=== PATIENT | male | born 1965 | race Caucasian/White ===

== ENCOUNTER → 2016-12-11 | Outpatient (CLI) | payer OTHER ==
[~2016-12-11] MED LIST: ALBUTEROL2.5 MG/0.5 INH; ASPIRIN81 M1 PO; Albuterol Sulfat3 M1 INH; CELEXA10 MG PO; CLARITIN-D 10 M1 T24 PO; GLIMEPIRIDE2 MG PO; HUMULIN 70/30 703 M1 SC; IMDUR30 MG PO; ISOSORBIDE30 MG PO; LISINOPRIL2.5 MG PO; LOPRESSOR; LOPRESSOR25 MG PO; LOPRESSOR50 MG PO; MEDROL DOSEPAK4 MG PO; MOTRIN800 MG PO; NEURONTIN300 MG PO; PLAVIX75 MG PO; PREDNISONE20 MG PO; RESTORIL22.5 MG PO; SIMVASTATIN40 MG PO; SIMVASTATIN80 MG PO; TESSALON PERLE100 M1 PO; TRAMADOL HCL50 MG PO; VICODIN 5/500 505 MG PO; VISTARIL25 MG PO; VISTARIL50 MG PO; ZANTAC 150150 MG PO; ZESTRIL2.5 MG PO; ZITHROMAX250 MG PO; ZOCOR10 MG PO; [UNRECOGNIZED DRUG - REMARK]; [UNRECOGNIZED DRUG - REMARK]
[2016-12-11 09:06] LABS: BASO # 0.1 10*3/uL (0.0-0.1); BASO % 0.9 % (0.0-1.0); EOS # 0.7 10*3/uL (0.0-0.4); EOS % 6.9 % (1.0-4.0); HEMATOCRIT 44.3 % (42.0-52.0); HEMOGLOBIN 15.1 g/dl (14.0-18.0); IG # 0.1 10*3/uL (0.0-0.1); LYMPH # 3.1 10*3/uL (1.3-4.4); LYMPH % 29.3 % (27.0-41.0); MEAN CELL VOLUME 85.9 fl (80.0-94.0); MEAN CORPUSCULAR HGB 29.3 pg (27.0-31.0); MEAN CORPUSCULAR HGB CONC 34.1 g/dl (33.0-37.0); MEAN PLATELET VOLUME 10.9 fl (9.6-12.3); NEUT # 5.5 10*3/uL (2.3-7.9); NEUT % 52.3 % (47.0-73.0); PLATELET COUNT AUTOMATED 194 10*3/uL (130-400); RED BLOOD COUNT 5.16 10*6/uL (4.50-5.90); WHITE BLOOD COUNT 10.4 10*3/uL (4.8-10.8)
[2016-12-11 09:09] LABS: BILIRUBIN NEGATIVE (NEGATIVE); BLOOD TRACE-LYSED (NEGATIVE); CLARITY SL CLOUDY (CLEAR); COLOR YELLOW (YELLOW); GLUCOSE 3+ (NEGATIVE); KETONE NEGATIVE (NEGATIVE); LEUKO ESTERASE NEGATIVE (NEGATIVE); NITRITE NEGATIVE (NEGATIVE); PH 5.5 (5.0-9.0); PROTEIN TRACE (NEGATIVE); UROBILINOGEN 0.2 E.U./dl (0.2-1.0)
[2016-12-11 09:24] LABS: HEMOGLOBIN A1c 10.2 % (4.8-5.6)
[2016-12-11 09:38] LABS: ALBUMIN 3.7 gm/dl (3.1-4.5); ALKALINE PHOSPHATASE 91 U/L (45-117); BUN 12 mg/dl (7-24); CARBON DIOXIDE 28 mmol/L (21-32); CHLORIDE 99 mmol/L (98-107); CHOLESTEROL 130 mg/dL (<200); EST GLOM FILT AFRICAN AMERICAN > 60 ml/min; GLUCOSE 319 mg/dL (65-99); HDL CHOLESTEROL 44 mg/dl (40-60); LDL CHOLESTEROL 67 mg/dL (9-159); POTASSIUM 4.5 mmol/L (3.5-5.1); SGOT/AST 20 IU/L (3-35); SGPT/ALT 33 U/L (12-78); SODIUM 139 mmol/L (136-145); TOTAL PROTEIN 7.2 gm/dL (6.4-8.2); TRIGLYCERIDES 97 mg/dl (<150); VLDL CHOLESTEROL 19 mg/dL (6-40)
== END ==
LOC: LAB 08:11
PROVIDERS: Nurse Practitioner Family
DX: E11.9 Type 2 diabetes mellitus without complications (principal); I10 Essential (primary) hypertension; F32.9 Major depressive disorder, single episode, unspecified; E78.4 Other hyperlipidemia

== ENCOUNTER → 2017-05-05 | Outpatient (CLI) | payer OTHER ==
[2017-05-05 13:17] LABS: BILIRUBIN NEGATIVE (NEGATIVE); BLOOD NEGATIVE (NEGATIVE); CLARITY CLEAR (CLEAR); COLOR YELLOW (YELLOW); GLUCOSE TRACE (NEGATIVE); KETONE NEGATIVE (NEGATIVE); LEUKO ESTERASE NEGATIVE (NEGATIVE); NITRITE NEGATIVE (NEGATIVE); PH 5.5 (5.0-9.0); SPECIFIC GRAVITY 1.015 (1.005-1.030); UROBILINOGEN 0.2 E.U./dl (0.2-1.0)
[2017-05-05 13:35] LABS: BASO # 0.1 10*3/uL (0.0-0.1); BASO % 0.8 % (0.0-1.0); EOS # 0.6 10*3/uL (0.0-0.4); HEMATOCRIT 40.8 % (42.0-52.0); HEMOGLOBIN 13.6 g/dl (14.0-18.0); LYMPH # 2.5 10*3/uL (1.3-4.4); LYMPH % 29.2 % (27.0-41.0); MEAN CELL VOLUME 86.1 fl (80.0-94.0); MEAN CORPUSCULAR HGB 28.7 pg (27.0-31.0); MEAN CORPUSCULAR HGB CONC 33.3 g/dl (33.0-37.0); MEAN PLATELET VOLUME 11.4 fl (9.6-12.3); MONO # 0.8 10*3/uL (0.1-1.0); MONO % 8.8 % (3.0-9.0); NEUT # 4.6 10*3/uL (2.3-7.9); NEUT % 53.9 % (47.0-73.0); PLATELET COUNT AUTOMATED 179 10*3/uL (130-400); RED BLOOD COUNT 4.74 10*6/uL (4.50-5.90); RED CELL DISTRI WIDTH 12.2 % (0-14.5); WHITE BLOOD COUNT 8.6 10*3/uL (4.8-10.8)
[2017-05-05 13:38] LABS: EPITHELIAL CELLS 0-2; WBC 0-2 wbc/hpf (0-5)
[2017-05-05 13:40] LABS: ALBUMIN 3.6 gm/dl (3.1-4.5); BUN 12 mg/dl (7-24); CHLORIDE 104 mmol/L (98-107); CHOLESTEROL 133 mg/dL (<200); CREATININE 0.83 mg/dL (0.70-1.30); HDL CHOLESTEROL 57 mg/dl (40-60); LDL CHOLESTEROL 56 mg/dL (9-159); POTASSIUM 4.3 mmol/L (3.5-5.1); SGOT/AST 23 IU/L (3-35); SGPT/ALT 27 U/L (12-78); SODIUM 139 mmol/L (136-145); TOTAL PROTEIN 7.4 gm/dL (6.4-8.2); TRIGLYCERIDES 100 mg/dl (<150); VLDL CHOLESTEROL 20 mg/dL (6-40)
[2017-05-05 13:41] LABS: ALKALINE PHOSPHATASE 84 U/L (45-117)
== END | disposition home or self-care (01) ==
LOC: LAB 12:39
PROVIDERS: Nurse Practitioner Family
DX: E11.9 Type 2 diabetes mellitus without complications (principal); I10 Essential (primary) hypertension

== ENCOUNTER → 2017-08-06 | Day surgery (SDC) | payer OTHER ==
[~2017-08-06] VITALS: Ht 175.2 cm; Wt 113.4 kg
[~2017-08-06] MED LIST changes: +IMDUR SA30 MG PO
--- NOTE | ~2017-08-06 | PROC NOTE ---
[place], [place] PROCEDURE NOTE NAME: BARBARA STEVENS [facility] #: [id number] UNIT #: [id number] ROOM: DOCTOR: JOANA GLYNN MD BIRTHDATE: [birth year] DOS: 08/06/2017 PREOPERATIVE DIAGNOSIS: Lower gastrointestinal bleed. POSTOPERATIVE DIAGNOSIS: Rectosigmoid mass (20-25 cm from the anal verge). PROCEDURE: Flexible sigmoidoscopy with biopsy. ENDOSCOPIST: Joana Glynn MD DEMAND EQUIPMENT REPAIRER: HORTENCIA. ANESTHESIA: MAC. INDICATIONS: This is a 51-year-old gentleman who is here for a workup for a lower GI bleed. The procedure and its complications were explained to the patient and his family in detail preoperatively. Complications that were discussed included but were not limited to bleeding, missed lesions, colon perforation, and prolonged pain. He agreed to proceed. DESCRIPTION OF PROCEDURE: After identifying the patient, the patient was brought to the endoscopy suite and placed in the left lateral position. After time-out procedure was called, sedation was administered by the anesthesia team and a rectal exam was performed. This was within normal limits with no blood noticed on the examining finger. At this point, an adult colonoscope was introduced into the anal canal and advanced sequentially into the rectum where a friable bleeding mass was found at approximately 20-25 cm from the anal verge. The scope was then passed beyond this mass and could not be advanced further because of poor prep and a lot of liquid stool that was encountered. This could not be cleaned despite multiple attempts at irrigation. At this point, the scope was then withdrawn and 2 biopsies with the help of a biopsy forceps were taken and sent for histopathological diagnosis. After hemostasis was confirmed, the scope was withdrawn and the patient was brought back to the recovery room in a stable fashion. The patient's family was informed of the findings, and the patient will be worked up for further evaluation from the standpoint of a colon tumor. Joana Glynn MD CM:PROCNOTE:PROCEDURE NOTE [id number] JOANA GLYNN MD
[2017-08-06 09:51] VITALS: BP 134/86
[2017-08-06 11:40] VITALS: BP 146/76
[2017-08-06 11:55] VITALS: BP 142/72
[2017-08-06 12:15] VITALS: BP 143/76
== END | disposition home or self-care (01) ==
LOC: SDC 08-05 11:00
DX: C19 Malignant neoplasm of rectosigmoid junction (principal); I25.2 Old myocardial infarction; I25.10 Atherosclerotic heart disease of native coronary artery without angina pectoris; I10 Essential (primary) hypertension; E11.9 Type 2 diabetes mellitus without complications; F17.210 Nicotine dependence, cigarettes, uncomplicated; K21.9 Gastro-esophageal reflux disease without esophagitis; Z79.899 Other long term (current) drug therapy

== ENCOUNTER → 2017-08-28 | Outpatient (CLI) | payer OTHER ==
[2017-08-28 17:24] LABS: BASO # 0.1 10*3/uL (0.0-0.1); BASO % 0.9 % (0.0-1.0); EOS # 0.8 10*3/uL (0.0-0.4); EOS % 7.9 % (1.0-4.0); HEMATOCRIT 40.9 % (42.0-52.0); HEMOGLOBIN 13.5 g/dl (14.0-18.0); LYMPH # 1.9 10*3/uL (1.3-4.4); LYMPH % 19.9 % (27.0-41.0); MEAN CELL VOLUME 86.1 fl (80.0-94.0); MEAN CORPUSCULAR HGB 28.4 pg (27.0-31.0); MEAN PLATELET VOLUME 11.1 fl (9.6-12.3); MONO # 0.8 10*3/uL (0.1-1.0); MONO % 8.4 % (3.0-9.0); NEUT # 5.9 10*3/uL (2.3-7.9); NEUT % 62.6 % (47.0-73.0); PLATELET COUNT AUTOMATED 192 10*3/uL (130-400); RED BLOOD COUNT 4.75 10*6/uL (4.50-5.90); RED CELL DISTRI WIDTH 12.3 % (0-14.5); WHITE BLOOD COUNT 9.5 10*3/uL (4.8-10.8)
[2017-08-28 17:44] LABS: BUN 11 mg/dl (7-24); CHLORIDE 100 mmol/L (98-107); CREATININE 0.89 mg/dL (0.70-1.30); POTASSIUM 4.4 mmol/L (3.5-5.1); SODIUM 136 mmol/L (136-145)
[2017-08-28 17:49] LABS: CEA 1.6 ng/mL
== END | disposition home or self-care (01) ==
LOC: LAB 16:58
PROVIDERS: Colon & Rectal Surgery
DX: C18.7 Malignant neoplasm of sigmoid colon (principal)

== ENCOUNTER → 2017-09-02 | Outpatient (CLI) | payer OTHER | END | disposition home or self-care (01) | LOC: CT 07:59 | DX: C18.7 Malignant neoplasm of sigmoid colon (principal); K63.9 Disease of intestine, unspecified; R94.31 Abnormal electrocardiogram [ECG] [EKG] ==

== ENCOUNTER 2020-01-24 15:14 | Observation (INO) | payer OTHER ==
[~2020-01-24] VITALS: Ht 170.1 cm; Wt 112.5 kg
[2020-01-24 15:36] VITALS: BP 105/63
[2020-01-24 15:47] LABS: BASO # 0.1 10*3/uL (0.0-0.1); BASO % 0.7 % (0.0-1.0); EOS # 0.2 10*3/uL (0.0-0.4); EOS % 1.7 % (1.0-4.0); HEMATOCRIT 44.5 % (42.0-52.0); LYMPH # 1.3 10*3/uL (1.3-4.4); LYMPH % 11.7 % (27.0-41.0); MEAN CELL VOLUME 83.5 fl (80.0-94.0); MEAN CORPUSCULAR HGB 28.1 pg (27.0-31.0); MEAN CORPUSCULAR HGB CONC 33.7 g/dl (33.0-37.0); MEAN PLATELET VOLUME 10.9 fl (9.6-12.3); MONO % 8.8 % (3.0-9.0); NEUT # 8.4 10*3/uL (2.3-7.9); NEUT % 76.7 % (47.0-73.0); PLATELET COUNT AUTOMATED 194 10*3/uL (130-400); RED BLOOD COUNT 5.33 10*6/uL (4.50-5.90); RED CELL DISTRI WIDTH 12.1 % (0-14.5); WHITE BLOOD COUNT 10.9 10*3/uL (4.8-10.8)
[2020-01-24 16:03] LABS: ALBUMIN 4.1 gm/dl (3.1-4.5); ALKALINE PHOSPHATASE 98 U/L (45-117); BUN 20 mg/dl (7-24); CHLORIDE 102 mmol/L (98-107); CREATININE 1.95 mg/dL (0.70-1.30); POTASSIUM 3.7 mmol/L (3.5-5.1); SGOT/AST 13 IU/L (3-35); SGPT/ALT 25 U/L (12-78); SODIUM 134 mmol/L (136-145)
[2020-01-24 16:04] LABS: TROPONIN I < 0.015 ng/ml (<0.045)
[2020-01-24 16:35] LABS: ACT PARTIAL THROMBO TIME 26.7 SECONDS (20.0-32.1); INTERNATIONAL NORM RATIO 1.1 (2.0-3.5)
[2020-01-24 17:30] VITALS: BP 110/68
[2020-01-24 18:48] VITALS: BP 121/56
--- NOTE | 2020-01-24 18:48 | NUR ---
LYING IN BED RESTING EYES CLOSED. DENIES ANY NEEDS. CALL LIGHT IN REACH.
--- NOTE | 2020-01-24 19:09 | NUR ---
NURSE TO NURSE REPORT GIVEN TO THIS RN.PT AWAITING ROOM ASSIGNMENT FOR ADMISSION.FLUIDS CONTINUE TO INFUSE.
[2020-01-24 19:45] VITALS: BP 141/62
--- NOTE | 2020-01-24 19:45 | NUR ---
A 54, admitted to 4E, under the services of ARY Abbasi DO with a diagnosis of CORY CHEST PAIN R/O MO. Chief complaint is CHEST PAIN. Patient arrived via stretcher from ER. Monitor applied. Initial assessment completed. Vital signs taken and recorded. ARY ABBASI DO notified of admission to the unit. Orders received. See assessment for past medical history, medications and allergies. Patient and/or family oriented to unit. [facility] 4TH FLOOR visitation policy reviewed. Clothing/patient valuable form completed. YESY WEN
--- NOTE | 2020-01-24 20:27 | NUR ---
PATIENT UNSURE OF MEDICATIONS. STATES HIS SISTER IS HIS CAREGIVER AND HAS A LIST OF MEDICATIONS. ATTEMPTED TO CALL SISTER. NO ANSWER. WILL RETRY
[2020-01-24] MEDS ORDERED: METOPROLOL TART50 M1 PO (20:35)
[2020-01-25] VITALS: BP 144/59
--- NOTE | 2020-01-25 04:00 | NUR ---
PATIENT SLEEPING, NO SIGNS OF DISTRESS. WILL CONTINUE TO MONITOR.
[2020-01-25 08:19] LABS: BASO # 0.1 10*3/uL (0.0-0.1); BASO % 0.4 % (0.0-1.0); EOS # 0.3 10*3/uL (0.0-0.4); EOS % 2.3 % (1.0-4.0); HEMATOCRIT 42.9 % (42.0-52.0); LYMPH # 1.7 10*3/uL (1.3-4.4); LYMPH % 15.6 % (27.0-41.0); MEAN CELL VOLUME 85.1 fl (80.0-94.0); MEAN CORPUSCULAR HGB 28.2 pg (27.0-31.0); MEAN CORPUSCULAR HGB CONC 33.1 g/dl (33.0-37.0); MEAN PLATELET VOLUME 10.9 fl (9.6-12.3); MONO % 9.1 % (3.0-9.0); NEUT # 8.1 10*3/uL (2.3-7.9); NEUT % 72.2 % (47.0-73.0); PLATELET COUNT AUTOMATED 162 10*3/uL (130-400); RED BLOOD COUNT 5.04 10*6/uL (4.50-5.90); RED CELL DISTRI WIDTH 12.1 % (0-14.5); WHITE BLOOD COUNT 11.2 10*3/uL (4.8-10.8)
[2020-01-25 08:32] LABS: BUN 17 mg/dl (7-24); CHLORIDE 107 mmol/L (98-107); CREATININE 0.94 mg/dL (0.70-1.30); POTASSIUM 3.5 mmol/L (3.5-5.1); SODIUM 136 mmol/L (136-145)
--- NOTE | 2020-01-25 09:00 | NUR ---
Strategic Planning Director in to talk to patient. Patient states lives at home with . There are no steps in the home. Physician: doesn't remember name Pharmacy: [facility] Home health services: none Patient's level of ADLs: INDEPENDENT Patient has working utilities: all working DME: none Follow-up physician's appointment after d/c: will be made by hospitalist nurse director upon discharge Does patient want to access PORTAL?: no Discharge plan discussed with patient, he lives at home, is independent in adls and ambulation, he states he will return home when discharged and denies any home needs, he states family will transport home upon discharge. MIKE SHARP
--- NOTE | 2020-01-25 13:12 | NUR ---
[facility] Discharge instructions reviewed with patient/family. Patient receptive and verbalizes understanding. Follow-up care arranged. Written instructions given to patient/family. DEVON DE LUNA
== END 2020-01-25 13:14 | disposition home or self-care (01) ==
LOC: ED 15:14 → EDHOLD 17:42 → 4E 19:00
PROVIDERS: Emergency Medicine; Physical Therapist; ADMIT Family Medicine
DX: R07.2 Precordial pain (principal); R00.1 Bradycardia, unspecified; N17.0 Acute kidney failure with tubular necrosis; D72.829 Elevated white blood cell count, unspecified; E87.1 Hypo-osmolality and hyponatremia; E80.6 Other disorders of bilirubin metabolism; E66.9 Obesity, unspecified; Z68.38 Body mass index [BMI] 38.0-38.9, adult

== ENCOUNTER 2022-01-08 18:14 | Emergency (ER) | payer OTHER ==
[~2022-01-08 18:14] MED LIST changes: +METOPROLOL TART50 M1 PO
[2022-01-08 18:59] LABS: BASO # 0.1 10*3/uL (0.0-0.1); BASO % 1.2 % (0.0-1.0); EOS # 0.6 10*3/uL (0.0-0.4); EOS % 7.2 % (1.0-4.0); HEMATOCRIT 39.4 % (42.0-52.0); LYMPH # 1.5 10*3/uL (1.3-4.4); LYMPH % 18.2 % (27.0-41.0); MEAN CELL VOLUME 86.8 fl (80.0-94.0); MEAN CORPUSCULAR HGB 29.3 pg (27.0-31.0); MEAN CORPUSCULAR HGB CONC 33.8 g/dl (33.0-37.0); MEAN PLATELET VOLUME 11.2 fl (9.6-12.3); MONO # 0.9 10*3/uL (0.1-1.0); MONO % 10.3 % (3.0-9.0); NEUT # 5.3 10*3/uL (2.3-7.9); NEUT % 62.7 % (47.0-73.0); PLATELET COUNT AUTOMATED 236 10*3/uL (130-400); RED BLOOD COUNT 4.54 10*6/uL (4.50-5.90); RED CELL DISTRI WIDTH 15.2 % (0-14.5); WHITE BLOOD COUNT 8.4 10*3/uL (4.8-10.8)
[2022-01-08 19:28] LABS: ALKALINE PHOSPHATASE 450 U/L (45-117); BUN 15 mg/dl (7-24); CHLORIDE 103 mmol/L (98-107); CREATININE 0.75 mg/dL (0.70-1.30); LIPASE 90 U/L (73-393); POTASSIUM 3.8 mmol/L (3.5-5.1); SGOT/AST 66 IU/L (3-35); SGPT/ALT 139 U/L (12-78); SODIUM 135 mmol/L (136-145); TOTAL PROTEIN 6.9 gm/dL (6.4-8.2)
[2022-01-08 20:18] LABS: BILIRUBIN 3+ (Negative); BLOOD Negative (Negative); CLARITY Clear (Clear); COLOR Dark Yellow (Yellow); GLUCOSE 3+ (Negative); KETONE Negative (Negative); LEUKO ESTERASE Trace (Negative); NITRITE Negative (Negative); PH 5.5 (4.5-8.0); SPECIFIC GRAVITY >= 1.030 (1.001-1.030); UROBILINOGEN 0.2 E.U./dl (0.0-1.0)
[2022-01-08 20:26] LABS: BACTERIA 3+; EPITHELIAL CELLS 0-2
[2022-01-08] MEDS ORDERED: CETIRIZINE HYDR10 MG PO (21:02)
[2022-01-08] MEDS ORDERED: GABAPENTIN100 M2 PO (21:03)
[2022-01-08] MEDS ORDERED: TRULICITY1.5 MG/0.5 SC (21:04)
== END 2022-01-09 08:03 | disposition short-term general hospital (02) ==
LOC: ED 18:14
PROVIDERS: Emergency Medicine
DX: R17 Unspecified jaundice (principal); R10.11 Right upper quadrant pain; Z79.899 Other long term (current) drug therapy

== ENCOUNTER 2022-01-22 18:08 | Inpatient (IN) | payer OTHER ==
[~2022-01-22] VITALS: Ht 170.1 cm; Wt 92.5 kg
[~2022-01-22 18:08] MED LIST changes: +CETIRIZINE HYDR10 MG PO; +GABAPENTIN100 M2 PO; +TRULICITY1.5 MG/0.5 SC
[2022-01-22 18:21] VITALS: BP 148/67
[2022-01-22] MEDS ORDERED: HYDROXYZINE PAM50 MG PO (18:36)
[2022-01-22] MEDS ORDERED: PANTOPRAZOLE SO40 MG PO (18:37)
[2022-01-22 19:16] LABS: HEMATOCRIT 37.7 % (42.0-52.0); MEAN CELL VOLUME 87.5 fl (80.0-94.0); MEAN CORPUSCULAR HGB 29.5 pg (27.0-31.0); MEAN CORPUSCULAR HGB CONC 33.7 g/dl (33.0-37.0); MEAN PLATELET VOLUME 12.1 fl (9.6-12.3); PLATELET COUNT AUTOMATED 210 10*3/uL (130-400); RED BLOOD COUNT 4.31 10*6/uL (4.50-5.90); RED CELL DISTRI WIDTH 17.8 % (0-14.5); WHITE BLOOD COUNT 9.2 10*3/uL (4.8-10.8)
[2022-01-22 19:20] LABS: MANUAL DIFF REFLEX YES
[2022-01-22 19:28] LABS: INTERNATIONAL NORM RATIO 1.2 (2.0-3.5)
[2022-01-22 19:36] LABS: ALKALINE PHOSPHATASE 361 U/L (45-117); BUN 13 mg/dl (7-24); CHLORIDE 100 mmol/L (98-107); CREATININE 0.86 mg/dL (0.70-1.30); LIPASE 161 U/L (73-393); SGOT/AST 62 IU/L (3-35); SGPT/ALT 69 U/L (12-78); SODIUM 136 mmol/L (136-145); TOTAL PROTEIN 7.5 gm/dL (6.4-8.2)
[2022-01-22 19:51] LABS: BASOPHILS 1 % (0-1); TOTAL CELLS COUNTED 100 #CELLS
[2022-01-22 19:52] LABS: PLATELET SUFFICIENCY NORMAL (NORMAL); STOMATOCYTE FEW; TARGET CELLS MODERATE
[2022-01-22 19:57] LABS: BILIRUBIN 3+ (Negative); BLOOD Negative (Negative); CLARITY Clear (Clear); COLOR Dark Yellow (Yellow); GLUCOSE 3+ (Negative); KETONE Negative (Negative); LEUKO ESTERASE Negative (Negative); NITRITE Negative (Negative); PH 5.5 (4.5-8.0); SPECIFIC GRAVITY >= 1.030 (1.001-1.030)
[2022-01-22 20:12] LABS: BACTERIA 2+
[2022-01-22 20:13] LABS: COARSE GRANULAR CAST 0-2; EPITHELIAL CELLS 0-2
[2022-01-22 22:00] VITALS: BP 129/64
[2022-01-22] MEDS ORDERED: ACETAMINOPHEN325 M2 PO (22:43)
[2022-01-22] MEDS ORDERED: QUESTRAN LIGHT4 GM PO (22:44)
[2022-01-22] MEDS ORDERED: LISINOPRIL20 MG PO (22:46)
[2022-01-22] MEDS ORDERED: ONDANSETRON HYDR4 MG PO (22:47)
[2022-01-23 06:12] LABS: BASO # 0.1 10*3/uL (0.0-0.1); BASO % 1.6 % (0.0-1.0); EOS # 0.4 10*3/uL (0.0-0.4); LYMPH # 1.4 10*3/uL (1.3-4.4); LYMPH % 16.5 % (27.0-41.0); MEAN CELL VOLUME 85.5 fl (80.0-94.0); MEAN CORPUSCULAR HGB 29.8 pg (27.0-31.0); MEAN CORPUSCULAR HGB CONC 34.8 g/dl (33.0-37.0); MEAN PLATELET VOLUME 12.9 fl (9.6-12.3); MONO % 11.2 % (3.0-9.0); NEUT # 5.7 10*3/uL (2.3-7.9); NEUT % 66.1 % (47.0-73.0); PLATELET COUNT AUTOMATED 215 10*3/uL (130-400); RED BLOOD COUNT 3.86 10*6/uL (4.50-5.90); RED CELL DISTRI WIDTH 17.7 % (0-14.5); WHITE BLOOD COUNT 8.7 10*3/uL (4.8-10.8)
[2022-01-23 06:20] LABS: CHLORIDE 103 mmol/L (98-107); POTASSIUM 3.7 mmol/L (3.5-5.1); SODIUM 138 mmol/L (136-145)
[2022-01-23 06:34] LABS: BUN 10 mg/dl (7-24); CREATININE 0.67 mg/dL (0.70-1.30); SGOT/AST 54 IU/L (3-35); SGPT/ALT 57 U/L (12-78); TOTAL PROTEIN 6.4 gm/dL (6.4-8.2)
[2022-01-23 06:51] LABS: ALKALINE PHOSPHATASE 310 U/L (45-117)
[2022-01-23 08:00] VITALS: BP 145/81
[2022-01-23 12:00] VITALS: BP 120/62
[2022-01-23 16:00] VITALS: BP 110/57
[2022-01-23 20:00] VITALS: BP 101/64
[2022-01-24] VITALS: BP 175/65
[2022-01-24 01:48] VITALS: BP 125/65
[2022-01-24 08:00] VITALS: BP 148/77
[2022-01-24 10:00] LABS: ALKALINE PHOSPHATASE 293 U/L (45-117); BUN 12 mg/dl (7-24); CHLORIDE 105 mmol/L (98-107); CREATININE 0.76 mg/dL (0.70-1.30); POTASSIUM 3.4 mmol/L (3.5-5.1); SGOT/AST 51 IU/L (3-35); SGPT/ALT 54 U/L (12-78); SODIUM 138 mmol/L (136-145); TOTAL PROTEIN 5.8 gm/dL (6.4-8.2)
[2022-01-24 12:00] VITALS: BP 135/68
[2022-01-24 16:00] VITALS: BP 116/61
[2022-01-24 20:00] VITALS: BP 136/68
[2022-01-25] VITALS: BP 142/68
[2022-01-25 06:58] LABS: ALKALINE PHOSPHATASE 309 U/L (45-117); CHLORIDE 107 mmol/L (98-107); CREATININE 0.74 mg/dL (0.70-1.30); POTASSIUM 3.4 mmol/L (3.5-5.1); SGOT/AST 56 IU/L (3-35); SGPT/ALT 56 U/L (12-78); SODIUM 140 mmol/L (136-145)
[2022-01-25 07:02] LABS: BUN 8 mg/dl (7-24)
[2022-01-25 07:40] LABS: BASO # 0.1 10*3/uL (0.0-0.1); BASO % 1.3 % (0.0-1.0); EOS # 0.4 10*3/uL (0.0-0.4); EOS % 4.5 % (1.0-4.0); HEMATOCRIT 31.8 % (42.0-52.0); LYMPH # 1.2 10*3/uL (1.3-4.4); LYMPH % 12.1 % (27.0-41.0); MEAN CELL VOLUME 85.7 fl (80.0-94.0); MEAN CORPUSCULAR HGB 29.4 pg (27.0-31.0); MEAN CORPUSCULAR HGB CONC 34.3 g/dl (33.0-37.0); MEAN PLATELET VOLUME 12.4 fl (9.6-12.3); MONO % 10.4 % (3.0-9.0); NEUT # 6.8 10*3/uL (2.3-7.9); NEUT % 71.1 % (47.0-73.0); PLATELET COUNT AUTOMATED 181 10*3/uL (130-400); RED BLOOD COUNT 3.71 10*6/uL (4.50-5.90); RED CELL DISTRI WIDTH 17.6 % (0-14.5); WHITE BLOOD COUNT 9.5 10*3/uL (4.8-10.8)
[2022-01-25 08:00] VITALS: BP 136/83
[2022-01-25 12:00] VITALS: BP 126/59
[2022-01-25 16:00] VITALS: BP 118/59
[2022-01-25 20:00] VITALS: BP 127/60
[2022-01-26] VITALS: BP 122/62
[2022-01-26 08:00] VITALS: BP 141/83
[2022-01-26] MEDS ORDERED: LOPERAMIDE HCL2 MG PO (10:18)
[2022-01-26 12:00] VITALS: BP 123/61
== END 2022-01-26 17:05 | disposition home or self-care (01) | DRG 463 ==
LOC: ED 18:08 → 4E 20:40 → EDHOLD 20:40 → 4E 21:42
PROVIDERS: Internal Medicine; Physician Assistant; ADMIT Internal Medicine; ATTEND Internal Medicine
DX: N30.00 Acute cystitis without hematuria (principal); E43 Unspecified severe protein-calorie malnutrition; D64.9 Anemia, unspecified; Z20.822 Contact with and (suspected) exposure to COVID-19; I25.10 Atherosclerotic heart disease of native coronary artery without angina pectoris; E11.65 Type 2 diabetes mellitus with hyperglycemia; R74.01 Elevation of levels of liver transaminase levels; F32.A Depression, unspecified; E87.6 Hypokalemia; I10 Essential (primary) hypertension; F32.9 Major depressive disorder, single episode, unspecified; Z78.9 Other specified health status; Z95.5 Presence of coronary angioplasty implant and graft; Z82.49 Family history of ischemic heart disease and other diseases of the circulatory system; Z80.8 Family history of malignant neoplasm of other organs or systems; I25.2 Old myocardial infarction; Z68.31 Body mass index [BMI] 31.0-31.9, adult

== ENCOUNTER 2022-03-15 17:35 | Emergency (ER) | payer OTHER ==
[~2022-03-15] VITALS: Ht 170.1 cm; Wt 99.8 kg
[~2022-03-15 17:35] MED LIST changes: +ACETAMINOPHEN325 M2 PO; +ASPERCREME LID1 EACH T; +HYDROXYZINE PAM50 MG PO; +LISINOPRIL20 MG PO; +LOPERAMIDE HCL2 MG PO; +ONDANSETRON HYDR4 MG PO; +PANTOPRAZOLE SO40 MG PO; +QUESTRAN LIGHT4 GM PO
[2022-03-15 18:12] LABS: BASO # 0.1 10*3/uL (0.0-0.1); BASO % 0.7 % (0.0-1.0); BILIRUBIN Negative (Negative); BLOOD Negative (Negative); CLARITY Clear (Clear); COLOR Yellow (Yellow); EOS # 0.2 10*3/uL (0.0-0.4); EOS % 2.6 % (1.0-4.0); GLUCOSE 3+ (Negative); HEMATOCRIT 30.8 % (42.0-52.0); KETONE Negative (Negative); LEUKO ESTERASE Trace (Negative); LYMPH # 1.3 10*3/uL (1.3-4.4); LYMPH % 14.6 % (27.0-41.0); MEAN CELL VOLUME 95.1 fl (80.0-94.0); MEAN CORPUSCULAR HGB 31.5 pg (27.0-31.0); MEAN CORPUSCULAR HGB CONC 33.1 g/dl (33.0-37.0); MEAN PLATELET VOLUME 11.1 fl (9.6-12.3); MONO # 0.9 10*3/uL (0.1-1.0); MONO % 9.8 % (3.0-9.0); NEUT # 6.5 10*3/uL (2.3-7.9); NEUT % 71.7 % (47.0-73.0); NITRITE Negative (Negative); PLATELET COUNT AUTOMATED 189 10*3/uL (130-400); RED BLOOD COUNT 3.24 10*6/uL (4.50-5.90); RED CELL DISTRI WIDTH 12.8 % (0-14.5); WHITE BLOOD COUNT 9.1 10*3/uL (4.8-10.8)
[2022-03-15 18:23] LABS: WBC 21-30 wbc/hpf (0-5)
[2022-03-15 18:24] LABS: EPITHELIAL CELLS 0-2
[2022-03-15 18:30] LABS: ACT PARTIAL THROMBO TIME 27.8 SECONDS (20.0-32.1)
[2022-03-15 18:35] LABS: ALKALINE PHOSPHATASE 361 U/L (45-117); BUN 7 mg/dl (7-24); CHLORIDE 104 mmol/L (98-107); CREATININE 0.72 mg/dL (0.70-1.30); SGOT/AST 28 IU/L (3-35); SGPT/ALT 38 U/L (12-78); SODIUM 137 mmol/L (136-145)
== END 2022-03-15 19:37 | disposition home or self-care (01) ==
LOC: ED 17:35
PROVIDERS: Emergency Medicine
DX: R60.0 Localized edema (principal); I25.10 Atherosclerotic heart disease of native coronary artery without angina pectoris; I10 Essential (primary) hypertension; Z98.890 Other specified postprocedural states; Z79.899 Other long term (current) drug therapy; Z85.038 Personal history of other malignant neoplasm of large intestine

== ENCOUNTER 2022-03-23 03:19 | Emergency (ER) | payer MEDICAID ==
[~2022-03-23] VITALS: Ht 170.1 cm; Wt 97.5 kg
[2022-03-23 03:52] LABS: BASO # 0.1 10*3/uL (0.0-0.1); BASO % 0.5 % (0.0-1.0); EOS # 0.2 10*3/uL (0.0-0.4); EOS % 2.2 % (1.0-4.0); HEMATOCRIT 32.8 % (42.0-52.0); LYMPH # 0.7 10*3/uL (1.3-4.4); LYMPH % 7.4 % (27.0-41.0); MEAN CELL VOLUME 97.3 fl (80.0-94.0); MEAN CORPUSCULAR HGB 31.5 pg (27.0-31.0); MEAN CORPUSCULAR HGB CONC 32.3 g/dl (33.0-37.0); MEAN PLATELET VOLUME 10.9 fl (9.6-12.3); MONO # 0.9 10*3/uL (0.1-1.0); MONO % 8.7 % (3.0-9.0); NEUT # 7.9 10*3/uL (2.3-7.9); NEUT % 80.7 % (47.0-73.0); PLATELET COUNT AUTOMATED 179 10*3/uL (130-400); RED BLOOD COUNT 3.37 10*6/uL (4.50-5.90); RED CELL DISTRI WIDTH 12.9 % (0-14.5); WHITE BLOOD COUNT 9.8 10*3/uL (4.8-10.8)
[2022-03-23 04:03] LABS: ACT PARTIAL THROMBO TIME 27.6 SECONDS (20.0-32.1)
[2022-03-23 04:08] LABS: ALKALINE PHOSPHATASE 386 U/L (45-117); BUN 9 mg/dl (7-24); CHLORIDE 106 mmol/L (98-107); CREATININE 0.85 mg/dL (0.70-1.30); LIPASE 134 U/L (73-393); POTASSIUM 4.2 mmol/L (3.5-5.1); SGOT/AST 29 IU/L (3-35); SGPT/ALT 31 U/L (12-78); SODIUM 137 mmol/L (136-145); TOTAL PROTEIN 7.7 gm/dL (6.4-8.2)
== END 2022-03-23 06:48 | disposition left against medical advice (07) ==
LOC: ED 03:19
PROVIDERS: Family Medicine
DX: K82.8 Other specified diseases of gallbladder (principal); Z20.822 Contact with and (suspected) exposure to COVID-19; R10.9 Unspecified abdominal pain; R11.2 Nausea with vomiting, unspecified; Z98.890 Other specified postprocedural states; Z95.5 Presence of coronary angioplasty implant and graft; Z79.899 Other long term (current) drug therapy; Z85.038 Personal history of other malignant neoplasm of large intestine

== ENCOUNTER 2022-03-28 12:07 | Emergency (ER) | payer MEDICAID ==
[~2022-03-28] VITALS: Ht 170.1 cm; Wt 115.7 kg
[2022-03-28 13:30] LABS: BASO # 0.1 10*3/uL (0.0-0.1); BASO % 0.9 % (0.0-1.0); EOS # 0.3 10*3/uL (0.0-0.4); EOS % 4.8 % (1.0-4.0); HEMATOCRIT 30.4 % (42.0-52.0); LYMPH # 1.4 10*3/uL (1.3-4.4); LYMPH % 20.9 % (27.0-41.0); MEAN CELL VOLUME 97.4 fl (80.0-94.0); MEAN CORPUSCULAR HGB 31.1 pg (27.0-31.0); MEAN CORPUSCULAR HGB CONC 31.9 g/dl (33.0-37.0); MEAN PLATELET VOLUME 10.9 fl (9.6-12.3); MONO # 0.6 10*3/uL (0.1-1.0); MONO % 9.3 % (3.0-9.0); NEUT # 4.2 10*3/uL (2.3-7.9); NEUT % 63.5 % (47.0-73.0); PLATELET COUNT AUTOMATED 211 10*3/uL (130-400); RED BLOOD COUNT 3.12 10*6/uL (4.50-5.90); WHITE BLOOD COUNT 6.7 10*3/uL (4.8-10.8)
[2022-03-28 13:48] LABS: ALKALINE PHOSPHATASE 402 U/L (45-117); BUN 11 mg/dl (7-24); CHLORIDE 107 mmol/L (98-107); POTASSIUM 4.3 mmol/L (3.5-5.1); SGOT/AST 27 IU/L (3-35); SODIUM 140 mmol/L (136-145); TOTAL PROTEIN 7.1 gm/dL (6.4-8.2)
[2022-03-28 13:52] LABS: BILIRUBIN Negative (Negative); BLOOD 1+ (Negative); CLARITY Clear (Clear); COLOR Dark Yellow (Yellow); GLUCOSE Negative (Negative); KETONE Negative (Negative); LEUKO ESTERASE 3+ (Negative); NITRITE Negative (Negative); PH 5.5 (4.5-8.0)
[2022-03-28 13:56] LABS: SGPT/ALT 33 U/L (12-78)
[2022-03-28 14:02] LABS: BACTERIA 1+; WBC 41-50 wbc/hpf (0-5)
[2022-03-28] MEDS ORDERED: LASIX40 MG PO (15:27)
== END 2022-03-28 15:39 | disposition home or self-care (01) ==
LOC: ED 12:07
PROVIDERS: Student in an Organized Health Care Education/Training Program
DX: N50.89 Other specified disorders of the male genital organs (principal); Z85.05 Personal history of malignant neoplasm of liver; Z79.899 Other long term (current) drug therapy; Z95.5 Presence of coronary angioplasty implant and graft

== ENCOUNTER 2022-05-18 11:28 | Inpatient (IN) | payer MEDICAID ==
[~2022-05-18] VITALS: Ht 170.1 cm; Wt 93.6 kg
[~2022-05-18 11:28] MED LIST changes: +BUMETANIDE1 MG PO; +BUMETANIDE2 MG PO; -CELEXA10 MG PO; +CELEXA20 MG PO; +COZAAR100 MG PO; -GABAPENTIN100 M2 PO; +HYDROCHLOROTHIA25 M1 PO; +IMODIUM A-D2 M2 PO; +K-TAB20 MEQ PO; +LANTUS SOL100 UNIT/1 SC; +LASIX40 MG PO; +LINEZOLID600 MG PO; -LISINOPRIL20 MG PO; +LOPRESSOR50 M1 PO; +METFORMIN HYDR500 MG PO; +PLAVIX75 M1 PO; +PROCTOSOL-HC28.35 GM R; +RISPERDAL0.5 MG PO; -TRULICITY1.5 MG/0.5 SC; +TRULICITY3 MG/0.5 M SQ; +VITAMIN D3125 MCG PO
[2022-05-18 11:40] VITALS: BP 120/60
[2022-05-18 12:13] LABS: BASO # 0.1 10*3/uL (0.0-0.1); BASO % 0.7 % (0.0-1.0); EOS # 0.6 10*3/uL (0.0-0.4); EOS % 7.1 % (1.0-4.0); LYMPH # 1.2 10*3/uL (1.3-4.4); LYMPH % 14.1 % (27.0-41.0); MEAN CELL VOLUME 89.7 fl (80.0-94.0); MEAN CORPUSCULAR HGB CONC 33.4 g/dl (33.0-37.0); MEAN PLATELET VOLUME 11.6 fl (9.6-12.3); MONO # 0.9 10*3/uL (0.1-1.0); MONO % 10.3 % (3.0-9.0); NEUT # 5.9 10*3/uL (2.3-7.9); NEUT % 67.3 % (47.0-73.0); PLATELET COUNT AUTOMATED 155 10*3/uL (130-400); RED CELL DISTRI WIDTH 13.5 % (0-14.5); WHITE BLOOD COUNT 8.7 10*3/uL (4.8-10.8)
[2022-05-18 12:34] LABS: CREATININE 1.9 mg/dL (0.70-1.30); POTASSIUM 3.9 mmol/L (3.4-5.1); TOTAL PROTEIN 7.8 gm/dL (6.0-8.0)
[2022-05-18 13:15] VITALS: BP 124/52
[2022-05-18] MEDS ORDERED: LISINOPRIL2.5 MG PO (14:58)
[2022-05-18 17:00] VITALS: BP 99/55
[2022-05-18 20:00] VITALS: BP 111/51
[2022-05-19] VITALS: BP 102/63
[2022-05-19 05:14] LABS: POTASSIUM 3.3 mmol/L (3.4-5.1)
[2022-05-19 05:20] LABS: CREATININE 1.8 mg/dL (0.70-1.30)
[2022-05-19 06:26] LABS: BASO # 0.1 10*3/uL (0.0-0.1); BASO % 0.8 % (0.0-1.0); EOS % 8.7 % (1.0-4.0); HEMATOCRIT 34.1 % (42.0-52.0); LYMPH # 1.8 10*3/uL (1.3-4.4); LYMPH % 15.9 % (27.0-41.0); MEAN CELL VOLUME 88.1 fl (80.0-94.0); MEAN CORPUSCULAR HGB 29.2 pg (27.0-31.0); MEAN CORPUSCULAR HGB CONC 33.1 g/dl (33.0-37.0); MEAN PLATELET VOLUME 12.1 fl (9.6-12.3); MONO % 8.7 % (3.0-9.0); NEUT # 7.5 10*3/uL (2.3-7.9); NEUT % 65.5 % (47.0-73.0); PLATELET COUNT AUTOMATED 177 10*3/uL (130-400); RED BLOOD COUNT 3.87 10*6/uL (4.50-5.90); RED CELL DISTRI WIDTH 13.5 % (0-14.5); WHITE BLOOD COUNT 11.5 10*3/uL (4.8-10.8)
[2022-05-19 07:46] VITALS: BP 96/58
[2022-05-19 11:45] VITALS: BP 93/53
[2022-05-19 16:00] VITALS: BP 103/54
[2022-05-19 20:00] VITALS: BP 110/62
[2022-05-19 23:01] LABS: BILIRUBIN 1+ (Negative); BLOOD Negative (Negative); CLARITY Clear (Clear); COLOR Dark Yellow (Yellow); GLUCOSE 1+ (Negative); KETONE Negative (Negative); LEUKO ESTERASE Negative (Negative); NITRITE Negative (Negative); SPECIFIC GRAVITY 1.015 (1.001-1.030)
[2022-05-19 23:09] LABS: URINE CREATININE RANDOM 69.9 mg/dL
[2022-05-19 23:18] LABS: BACTERIA 2+; HYALINE CAST 41-50
[2022-05-20] VITALS: BP 102/70
[2022-05-20 05:27] LABS: POTASSIUM 3.8 mmol/L (3.4-5.1)
[2022-05-20 05:33] LABS: CREATININE 1.86 mg/dL (0.70-1.30)
[2022-05-20 08:00] VITALS: BP 122/48
[2022-05-20 12:00] VITALS: BP 100/50
[2022-05-20 15:30] VITALS: BP 112/50
[2022-05-20 20:00] VITALS: BP 157/81
[2022-05-21] VITALS: BP 143/66
[2022-05-21 05:25] LABS: CHLORIDE 103 mmol/L (98-107); CREATININE 1.19 mg/dL (0.70-1.30); POTASSIUM 4.2 mmol/L (3.4-5.1); SODIUM 134 mmol/L (136-145)
[2022-05-21 05:49] LABS: BUN 46 mg/dl (9-23)
[2022-05-21 07:38] VITALS: BP 98/56
[2022-05-21] MEDS ORDERED: CIPRO500 MG PO (10:08)
[2022-05-21] MEDS ORDERED: FLAGYL 375375 MG PO (10:08)
[2022-05-21 11:50] VITALS: BP 114/58
[2022-05-21 12:03] VITALS: BP 110/60
== END 2022-05-21 16:00 ==
LOC: ED 11:28 → 5E 13:47 → EDHOLD 13:47 → 5E 14:57
PROVIDERS: Internal Medicine Nephrology; Physician Assistant; ADMIT Internal Medicine; ATTEND Internal Medicine
DX: K81.0 Acute cholecystitis (principal); E11.65 Type 2 diabetes mellitus with hyperglycemia; N17.0 Acute kidney failure with tubular necrosis; E87.1 Hypo-osmolality and hyponatremia; C18.9 Malignant neoplasm of colon, unspecified; C78.7 Secondary malignant neoplasm of liver and intrahepatic bile duct; C79.89 Secondary malignant neoplasm of other specified sites; E44.0 Moderate protein-calorie malnutrition; I25.10 Atherosclerotic heart disease of native coronary artery without angina pectoris; R74.01 Elevation of levels of liver transaminase levels; F33.0 Major depressive disorder, recurrent, mild; E11.42 Type 2 diabetes mellitus with diabetic polyneuropathy; E11.22 Type 2 diabetes mellitus with diabetic chronic kidney disease; E87.6 Hypokalemia; I12.9 Hypertensive chronic kidney disease with stage 1 through stage 4 chronic kidney disease, or unspecified chronic kidney disease; N18.31 Chronic kidney disease, stage 3a; Z91.119 Patient's noncompliance with dietary regimen due to unspecified reason; Z82.49 Family history of ischemic heart disease and other diseases of the circulatory system; Z80.8 Family history of malignant neoplasm of other organs or systems; Z68.32 Body mass index [BMI] 32.0-32.9, adult